=== PATIENT | female | born 1985 | race Caucasian/White ===

== ENCOUNTER 2017-08-19 21:56 | Emergency (ER) | payer OTHER ==
[~2017-08-19] VITALS: Ht 170.2 cm; Wt 122.7 kg
[~2017-08-19 21:56] MED LIST: VENL25TA47 PO
[2017-08-19] MEDS ORDERED: ADDE10 PO (22:02)
[2017-08-19] MEDS ORDERED: SPIR50 PO (22:02)
[2017-08-19] MEDS ORDERED: SERT100T12 PO (22:02)
[2017-08-19] MEDS ORDERED: DOXY100C PO (22:02)
[2017-08-19 23:10] VITALS: BP 120/80
== END 2017-08-19 23:14 | disposition home or self-care (01) ==
LOC: EMS 21:57
DX: F32.9 Major depressive disorder, single episode, unspecified (principal); I10 Essential (primary) hypertension; Z88.0 Allergy status to penicillin
CPT/HCPCS: 99284

== ENCOUNTER 2018-02-27 10:24 | Emergency (ER) | payer OTHER ==
[~2018-02-27] VITALS: Ht 167.6 cm; Wt 123.2 kg
[~2018-02-27 10:24] MED LIST changes: +ADDE10 PO; +DOXY100C PO; +SERT100T12 PO; +SPIR50 PO; -VENL25TA47 PO
[2018-02-27 11:30] VITALS: BP 124/93
== END 2018-02-27 12:09 | disposition home or self-care (01) ==
LOC: EMS 10:25
DX: Z48.02 Encounter for removal of sutures (principal); I10 Essential (primary) hypertension; Z88.0 Allergy status to penicillin
CPT/HCPCS: 99281

== ENCOUNTER 2018-03-07 17:10 | Emergency (ER) | payer OTHER ==
[~2018-03-07] VITALS: Ht 170.2 cm; Wt 123.2 kg
[~2018-03-07 17:10] MED LIST changes: -DOXY100C PO; -SERT100T12 PO; -SPIR50 PO
[2018-03-07 20:27] VITALS: BP 132/75
== END 2018-03-07 20:27 | disposition home or self-care (01) ==
LOC: EMS 17:14
DX: S93.402A Sprain of unspecified ligament of left ankle, initial encounter (principal); I10 Essential (primary) hypertension; G43.909 Migraine, unspecified, not intractable, without status migrainosus; Z88.0 Allergy status to penicillin; X58.XXXA Exposure to other specified factors, initial encounter; Y93.01 Activity, walking, marching and hiking; Y92.89 Other specified places as the place of occurrence of the external cause; Y99.8 Other external cause status
CPT/HCPCS: 99284

== ENCOUNTER 2025-06-14 19:31 | Emergency (ER) | payer MEDICAID ==
[~2025-06-14] VITALS: Ht 167.6 cm; Wt 131.8 kg
[2025-06-14 21:45] VITALS: BP 117/77; PULSE 80; RESP 16; TEMP 97.905272; O2SAT 98
[2025-06-14] MEDS ORDERED: ONDA-104 PO (22:22)
[2025-06-14] MEDS ORDERED: KETO10TA2 PO (22:22)
[2025-06-14] MEDS ORDERED: DEXA4 PO (22:22)
[2025-06-14] MEDS: KETOROLAC TROMETHAMINE 60 MG/2 ML VIAL IM ONE (22:32)
[2025-06-14] MEDS: DEXAMETHASONE SOD PHOS 4 MG/ML 5 ML VIAL IM ONE (22:32)
== END 2025-06-14 23:04 | disposition home or self-care (01) ==
LOC: EMS 19:31
DX: G43.909 Migraine, unspecified, not intractable, without status migrainosus (principal); I10 Essential (primary) hypertension; Z88.0 Allergy status to penicillin; Z79.899 Other long term (current) drug therapy
CPT/HCPCS: 99284; 96372; J1885; J1100

== ENCOUNTER 2025-06-25 18:48 | Emergency (ER) | payer MEDICAID, OTHER ==
[~2025-06-25] VITALS: Ht 170.2 cm; Wt 131.0 kg
[~2025-06-25 18:48] MED LIST changes: +DEXA4 PO; +KETO10TA2 PO; +ONDA-104 PO
[2025-06-25 18:54] VITALS: TEMP 97.5
[2025-06-26] MEDS: DEXAMETHASONE SOD PHOS 4 MG/ML 5 ML VIAL IVP ONE (00:57)
[2025-06-26] MEDS: KETOROLAC TROMETHAMINE 30 MG/ML VIAL IVP ONE (00:58)
[2025-06-26] MEDS: ONDANSETRON HCL 4 MG/2 ML VIAL IVP ONE (01:04)
[2025-06-26 02:00] VITALS: BP 124/77; PULSE 85; RESP 17; O2SAT 98
== END 2025-06-26 02:26 | disposition home or self-care (01) ==
LOC: EMS 18:48
DX: G43.909 Migraine, unspecified, not intractable, without status migrainosus (principal); I10 Essential (primary) hypertension; Z88.0 Allergy status to penicillin; Z79.899 Other long term (current) drug therapy
CPT/HCPCS: 99285; 96374; 70450; 96375; J1885; J1100; J2405